=== PATIENT | male | born 1970 | race Caucasian/White ===

== ENCOUNTER 2021-08-09 07:59 | Day surgery (SDC) | payer OTHER ==
[~2021-08-09] VITALS: Ht 188 cm; Wt 137.4 kg
[~2021-08-09 07:59] MED LIST: ASPI81CH PO; ATOR20 PO; FENO67 PO; LEVO750 PO; LISI20 PO; METF500 PO; METO50ER PO; Prednisone20 MG PO; SILD50TA PO; Zovirax800 MG PO
== END 2021-08-09 10:25 | disposition home or self-care (01) ==
LOC: ORSCSDS 07:59
PROVIDERS: Surgery
PROC: 0DBK8ZX Excision of Ascending Colon, Via Natural or Artificial Opening Endoscopic, Diagnostic (ICD-10-PCS; principal; 2021-08-09 09:15)
DX: R19.4 Change in bowel habit (principal); D12.2 Benign neoplasm of ascending colon; Z86.010 Personal history of colon polyps; E11.9 Type 2 diabetes mellitus without complications; I10 Essential (primary) hypertension; E78.5 Hyperlipidemia, unspecified; G47.33 Obstructive sleep apnea (adult) (pediatric); E66.01 Morbid (severe) obesity due to excess calories; Z68.39 Body mass index [BMI] 39.0-39.9, adult; Z79.82 Long term (current) use of aspirin; Z79.84 Long term (current) use of oral hypoglycemic drugs; Z79.899 Other long term (current) drug therapy
CPT/HCPCS: 82947; 88305; J2704; J7120